=== PATIENT | female | born 1980 | race Caucasian/White ===

== ENCOUNTER → 2020-06-26 | Outpatient (CLI) | payer BC | LOC: RAD 07:42 | DX: M25.512 Pain in left shoulder (principal) ==

== ENCOUNTER → 2021-03-06 | Outpatient (CLI) | payer BC | LOC: RAD 16:43 | DX: Q65.89 Other specified congenital deformities of hip (principal); M86.8X8 Other osteomyelitis, other site; M51.37 Other intervertebral disc degeneration, lumbosacral region; M25.561 Pain in right knee ==

== ENCOUNTER → 2022-11-05 | Outpatient (CLI) | payer MEDICAID ==
[2022-11-05 13:44] LABS: BASO # 0.03 K/mm3 (0.02-0.10); EOS % 2.8 % (1.0-5.0); HEMATOCRIT 37.1 % (37.0-47.0); HEMOGLOBIN 12.2 g/dL (12.5-16.0); LYMPH# 2.06 K/mm3 (1.50-4.00); MEAN CELL VOLUME 87 fl (78-100); MEAN CORPUSCULAR HEMOGLOBIN 28 pg (27-31); MEAN CORPUSCULAR HGB CONC 33 g/dL (33-37); MEAN PLATELET VOLUME 10.1 fl (7.4-10.4); MONO # 0.53 K/mm3 (0.20-0.80); NEU # 4.19 K/mm3 (1.40-6.50); PLATELET COUNT 202 K/mm3 (130-400); RED BLOOD COUNT 4.29 M/mm3 (4.10-5.30)
[2022-11-05 13:52] LABS: ALBUMIN 4.1 g/dL (3.5-5.0)
[2022-11-05 13:53] LABS: CALCIUM 8.8 mg/dL (8.3-10.5)
[2022-11-05 13:55] LABS: TOTAL PROTEIN 7.1 g/dL (6.4-8.3)
[2022-11-05 13:56] LABS: TOTAL BILIRUBIN 1.1 mg/dL (0.2-1.2)
[2022-11-06 01:17] LABS: T3 TOTAL 105 ng/dL (35-193)
== END ==
LOC: RAD 13:00 → LAB 13:04
PROVIDERS: Physician Assistant
DX: I10 Essential (primary) hypertension (principal); F41.8 Other specified anxiety disorders; G44.89 Other headache syndrome; G43.909 Migraine, unspecified, not intractable, without status migrainosus; M51.36 Other intervertebral disc degeneration, lumbar region; G89.29 Other chronic pain; M95.3 Acquired deformity of neck; Z13.29 Encounter for screening for other suspected endocrine disorder; Z00.00 Encounter for general adult medical examination without abnormal findings; Z13.220 Encounter for screening for lipoid disorders; K90.9 Intestinal malabsorption, unspecified; Z13.1 Encounter for screening for diabetes mellitus

== ENCOUNTER → 2023-12-28 | Outpatient (CLI) | payer MEDICAID | LOC: RAD 07:30 | DX: N63.22 Unspecified lump in the left breast, upper inner quadrant (principal) ==

== ENCOUNTER → 2024-10-13 | Outpatient (CLI) | payer OTHER, MEDICAID | LOC: RAD 12:42 | DX: M47.816 Spondylosis without myelopathy or radiculopathy, lumbar region (principal) ==